=== PATIENT | female | born 1960 | race Caucasian/White ===

== ENCOUNTER 2018-08-30 00:17 | Outpatient (CLI) | payer BC, SELFPAY ==
--- NOTE | 2018-08-30 14:57 | DI.MAMMO_ITS ---
SYMPTOM/DIAGNOSIS: SCREENING, Z12.31 MAMMOGRAMS: Mammograms were interpreted according to the usual protocol including computer analysis with CAD system, tomosynthesis and C view imaging. Comparison is made with prior examinations. Breast density, C. There is an area of asymmetric breast tissue in the medial right breast seen on the craniocaudad view. Spot compression view and ultrasound are requested for further evaluation. No other suspicious masses or microcalcifications are seen. The skin and axilla are unremarkable. IMPRESSION: Additional views of the right breast as described above. Category 0. MQSA ASSESSMENT OF FINDINGS: Incomplete: Needs additional imaging evaluation. Category 0. Patient will receive a letter notifying them of these results. Bi-RADS category C. The breasts are heterogeneously dense, which may obscure small masses.
--- NOTE | 2018-08-30 15:21 | DI.RAD_ITS ---
SYMPTOMS/DIAGNOSIS: OSTEOPENIA, M85.80 DEXA SCAN: Routine examination. The lateral view of the spine shows no compression deformities. Evaluation of the left hip shows a total T score of -2.2 and a Z score of -1.4. This is consistent with osteopenia and an increased fracture risk. Evaluation of the lumbar spine shows a total T score of -1.9 and a Z score of - 0.7. This is consistent with osteopenia and an increased fracture risk. No evidence of osteoporosis is seen. IMPRESSION: Osteopenia in the left hip and lumbar spine.
== END 2018-08-30 00:37 ==
PROVIDERS: PCP Family Medicine; Visit Provider Family Medicine
DX: Z12.31 Encounter for screening mammogram for malignant neoplasm of breast (principal); R92.8 Other abnormal and inconclusive findings on diagnostic imaging of breast; M85.88 Other specified disorders of bone density and structure, other site
CPT/HCPCS: 77063; 77067; 77080

== ENCOUNTER 2018-09-07 00:33 | Outpatient (CLI) | payer BC, SELFPAY ==
--- NOTE | 2018-09-07 14:17 | DI.MAMMO_ITS ---
SYMPTOMS/DIAGNOSIS: F/U ABNORMAL MAMMO, ASYMMETRIC BREAST TISSUE ON CRANIOCAUDAD VIEW SPOT COMPRESSION VIEW WITH TOMOGRAPHY OF THE RIGHT BREAST: Additional images are interpreted according to the usual protocol including tomosynthesis and 2D imaging. CC spot compression view with tomography was performed for a questioned area of tissue asymmetry in the medial subareolar region of the right breast. No persistent abnormality or change is seen. The findings are consistent with overlapping structures. Breast density C. IMPRESSION: Category 1, negative mammogram. Yearly screening mammography is recommended. SA ASSESSMENT OF FINDINGS: Negative. Category 1. Patient will receive a letter notifying them of these results.
== END 2018-09-07 00:53 ==
PROVIDERS: PCP Family Medicine; Visit Provider Family Medicine
DX: Z12.31 Encounter for screening mammogram for malignant neoplasm of breast (principal); R92.8 Other abnormal and inconclusive findings on diagnostic imaging of breast; N64.59 Other signs and symptoms in breast
CPT/HCPCS: 77063; 77067

== ENCOUNTER 2018-12-06 11:13 | Day surgery (SDC) | payer BC, SELFPAY ==
[2018-12-06 11:27] VITALS: BP 127/79; PULSE 90; RESP 16; TEMP 37.1; O2SAT 94
[2018-12-06] MEDS: Lactated Ringers 1,000 ML 80 ML IV (11:53)
--- NOTE | 2018-12-06 12:02 | W.PM.HP.N ---
Date of service: 12/06/18 Time of Service: 12:02 Assessment and Plan (1) Osteopenia: Current visit: No Status: Acute (2) Depressive disorder: Current visit: No Status: Acute (3) Anxiety: Current visit: No Status: Acute (4) Stress incontinence: Current visit: Yes Status: Acute We will proceed with a mid urethral sling History of Present Illness Chief Complaint: Stress urinary incontinence Narrative: This is a 58-year-old woman who has a history of urinary incontinence. Most of her leakage occurs with activity. She had failed behavioral modification and pelvic floor physical therapy. She had also tried anticholinergics and beta 3 agonists. We did a urodynamic study which documented stress incontinence with no uninhibited bladder contractions. We discussed treatment options and she is agreeable to a mid urethral sling Review of Systems Review of Systems No fevers or chills No vision change or dysphasia No diabetes or thyroid No shortness of breath, cough or hemoptysis No chest pain or palpitations No nausea, vomiting, hepatitis, ulcers, jaundice, diarrhea or constipation No seizures, strokes or peripheral neuropathy No bleeding disorders or anemia No gout, occasional arthralgia PFSH Medical History Osteopenia (Acute) Anxiety (Chronic) Depression (Chronic) Surgical History section Colonoscopy - IV Sedation (06/22/12) Colonoscopy - MAC (03/13/17) Hysterectomy, Laproscopic (~2000) Ligation of fallopian tube Social History household members: spouse current occupational status: employed current occupation: NATURAL RESOURCE SPECIALIST pets and animals: Yes pets and animals: cat(s) frequency: 3-4 times per week duration: 15-30 minutes/day Smoking/Tobacco Use Status: Never alcohol intake: never substance use type: does not use artem/sikh: Spiritism special artem needs: No Meds Home Medications Medication Instructions Recorded Confirmed Type cholecalciferol (vitamin D3) 1,000 unit PO DAILY 01/30/13 12/06/18 History multivitamin [Daily Multiple 1 ea PO DAILY 01/30/13 12/06/18 History Vitamin] glucosam-chond mh-jzwxct-nt ac 2 ea PO DAILY 06/21/16 12/06/18 History citalopram 40 mg tablet 40 mg PO DAILY 08/13/18 12/06/18 History fluticasone 50 mcg/actuation nasal 2 spray KAILA BID PRN gm 08/13/18 12/06/18 History spray,suspension estradiol 2 mg tablet 2 mg PO DAILY #90 tab 09/26/18 12/06/18 Rx Allergies Allergy/AdvReac Type Severity Reaction Status Date / Time venlafaxine HCl Allergy Mild hives Verified 12/05/18 08:03 [From Effexor] codeine Allergy Verified 12/05/18 08:03 metoclopramide Allergy Verified 12/05/18 08:03 topiramate [From Topamax] Allergy Verified 12/05/18 08:03 Exam Narrative Exam Narrative: She is in no current distress. She is cooperative. She does not appear septic or toxic. Her vital signs are documented elsewhere in the chart. Her neck is supple with no mass Her lungs are clear with no rales or rhonchi Cardiac exam regular rate and rhythm Her abdomen is soft with no masses Her pelvic exam revealed no masses She is awake, alert and oriented. Results Last Vital Signs Temp 37.1 C 12/06/18 11:27 Pulse 90 12/06/18 11:27 Resp 16 12/06/18 11:27 BP 127/79 12/06/18 11:27 Pulse Ox 94 L 12/06/18 11:27
--- NOTE | 2018-12-06 12:08 | HPE_ITS ---
Date of service: 12/06/18 Time of Service: 12:02 Assessment and Plan (1) Osteopenia: Current visit: No Status: Acute (2) Depressive disorder: Current visit: No Status: Acute (3) Anxiety: Current visit: No Status: Acute (4) Stress incontinence: Current visit: Yes Status: Acute We will proceed with a mid urethral sling History of Present Illness Chief Complaint: Stress urinary incontinence Narrative: This is a 58-year-old woman who has a history of urinary incontinence. Most of her leakage occurs with activity. She had failed behavioral modification and pelvic floor physical therapy. She had also tried anticholinergics and beta 3 agonists. We did a urodynamic study which documented stress incontinence with no uninhibited bladder contractions. We discussed treatment options and she is agreeable to a mid urethral sling Review of Systems Review of Systems No fevers or chills No vision change or dysphasia No diabetes or thyroid No shortness of breath, cough or hemoptysis No chest pain or palpitations No nausea, vomiting, hepatitis, ulcers, jaundice, diarrhea or constipation No seizures, strokes or peripheral neuropathy No bleeding disorders or anemia No gout, occasional arthralgia PFSH Medical History Osteopenia (Acute) Anxiety (Chronic) Depression (Chronic) Surgical History section Colonoscopy - IV Sedation (06/22/12) Colonoscopy - MAC (03/13/17) Hysterectomy, Laproscopic (~2000) Ligation of fallopian tube Social History household members: spouse current occupational status: employed current occupation: WINDOWS ADMINISTRATOR pets and animals: Yes pets and animals: cat(s) frequency: 3-4 times per week duration: 15-30 minutes/day Smoking/Tobacco Use Status: Never alcohol intake: never substance use type: does not use artem/baptism: Islam special artem needs: No Meds Home Medications Medication Instructions Recorded Confirmed Type cholecalciferol (vitamin D3) 1,000 unit PO DAILY 01/30/13 12/06/18 History multivitamin [Daily Multiple 1 ea PO DAILY 01/30/13 12/06/18 History Vitamin] glucosam-chond yc-ksghzn-su ac 2 ea PO DAILY 06/21/16 12/06/18 History citalopram 40 mg tablet 40 mg PO DAILY 08/13/18 12/06/18 History fluticasone 50 mcg/actuation nasal 2 spray KAILA BID PRN gm 08/13/18 12/06/18 History spray,suspension estradiol 2 mg tablet 2 mg PO DAILY #90 tab 09/26/18 12/06/18 Rx Allergies Allergy/AdvReac Type Severity Reaction Status Date / Time venlafaxine HCl Allergy Mild hives Verified 12/05/18 08:03 [From Effexor] codeine Allergy Verified 12/05/18 08:03 metoclopramide Allergy Verified 12/05/18 08:03 topiramate [From Topamax] Allergy Verified 12/05/18 08:03 Exam Narrative Exam Narrative: She is in no current distress. She is cooperative. She does not appear septic or toxic. Her vital signs are documented elsewhere in the chart. Her neck is supple with no mass Her lungs are clear with no rales or rhonchi Cardiac exam regular rate and rhythm Her abdomen is soft with no masses Her pelvic exam revealed no masses She is awake, alert and oriented. Results Last Vital Signs Temp 37.1 C 12/06/18 11:27 Pulse 90 12/06/18 11:27 Resp 16 12/06/18 11:27 BP 127/79 12/06/18 11:27 Pulse Ox 94 L 12/06/18 11:27
[2018-12-06] MEDS: Lidocaine 1% Multi-Dose 50 ML VIAL (13:00)
[2018-12-06 13:29] VITALS: BP 91/52; PULSE 69; RESP 16; TEMP 36.3; O2SAT 99
[2018-12-06 13:34] VITALS: BP 87/53; PULSE 67; RESP 15; TEMP 36.3; O2SAT 99
--- NOTE | 2018-12-06 13:35 | W.PM.DSUDISC ---
Discharge Plan Disposition Patient Disposition: HOME Condition: Stable Discharge Details Reason For Visit: stress incontinence Attending Provider: Dustin Encinas Primary Care Provider: Aranza Evans Home Meds and New Rx's Prescriptions: New tramadol 50 mg tablet 50 mg PO Q6H PRN (Reason: pain) Qty: 10 RF: 0 No Action citalopram 40 mg tablet 40 mg PO DAILY RF: 0 fluticasone [Allergy Relief (fluticasone)] 50 mcg/actuation spray,suspension 2 spray KAILA BID PRNRF: 0 multivitamin [Daily Multi-Vitamin] 1 EACH tablet 1 ea PO DAILY RF: 0 cholecalciferol (vitamin D3) 1,000 UNIT capsule 1,000 unit PO DAILY RF: 0 glucosam-chond xg-chcyce-ll ac 1 EACH capsule 2 ea PO DAILY RF: 0 estradiol 2 mg tablet 2 mg PO DAILY Qty: 90 RF: 3 Discharge Instructions Additional Instructions: No lifting over 10 to 20 pounds for 1 to 2 weeks F/U with me 2 to 4 weeks Nothing per vagina until seen in followup Stand Alone Forms: DSU Post op Instructions, Laura Curran (DSU) Shower/Bathe:: 24 hours Diet:: As Tolerated Discharge Orders Discharge Orders: Discharge Order (Routine); Ordered 12/06/18 Ordered By: Dustin Encinas DS: Diagnosis Discharge Diagnosis (1) Osteopenia: Status: Acute (2) Depressive disorder: Status: Acute (3) Anxiety: Status: Acute (4) Stress incontinence: Status: Acute
[2018-12-06 13:39] VITALS: BP 92/51; PULSE 66; RESP 16; TEMP 36.3; O2SAT 99
--- NOTE | 2018-12-06 13:40 | PDOC.DSDIS_ITS ---
Discharge Plan Disposition Patient Disposition: HOME Condition: Stable Discharge Details Reason For Visit: stress incontinence Attending Provider: Dustin Encinas Primary Care Provider: Aranza Evans Home Meds and New Rx's Prescriptions: New tramadol 50 mg tablet 50 mg PO Q6H PRN (Reason: pain) Qty: 10 RF: 0 No Action citalopram 40 mg tablet 40 mg PO DAILY RF: 0 fluticasone [Allergy Relief (fluticasone)] 50 mcg/actuation spray,suspension 2 spray KAILA BID PRNRF: 0 multivitamin [Daily Multi-Vitamin] 1 EACH tablet 1 ea PO DAILY RF: 0 cholecalciferol (vitamin D3) 1,000 UNIT capsule 1,000 unit PO DAILY RF: 0 glucosam-chond le-ybnlgn-hp ac 1 EACH capsule 2 ea PO DAILY RF: 0 estradiol 2 mg tablet 2 mg PO DAILY Qty: 90 RF: 3 Discharge Instructions Additional Instructions: No lifting over 10 to 20 pounds for 1 to 2 weeks F/U with me 2 to 4 weeks Nothing per vagina until seen in followup Stand Alone Forms: DSU Post op Instructions, Laura Curran (DSU) Shower/Bathe:: 24 hours Diet:: As Tolerated Discharge Orders Discharge Orders: Discharge Order (Routine); Ordered 12/06/18 Ordered By: Dustin Encinas DS: Diagnosis Discharge Diagnosis (1) Osteopenia: Status: Acute (2) Depressive disorder: Status: Acute (3) Anxiety: Status: Acute (4) Stress incontinence: Status: Acute
[2018-12-06 13:54] VITALS: BP 94/64; PULSE 76; RESP 16; TEMP 36.4; O2SAT 99
[2018-12-06 14:30] VITALS: BP 108/76; PULSE 71; RESP 16; TEMP 36.2; O2SAT 97
--- NOTE | 2018-12-06 18:22 | ROE_ITS ---
DATE OF OPERATION: December 06, 2018 PREOPERATIVE DIAGNOSIS: Stress urinary incontinence. POSTOPERATIVE DIAGNOSIS: Stress urinary incontinence. PROCEDURE: Midurethral sling. SURGEON: Dustin Encinas M.D. ANESTHESIA: General. COMPLICATIONS: None. HISTORY: This is a 58-year-old woman who has a history of urinary incontinence. Her leakage tends t o occur when she laughs, coughs, or sneezes. She has failed behavioral modification and pelvic floor Physical Therapy. On urodynamics she had no uninhibited bladder contractions but did have leakage w ith activity. She presents now for a midurethral sling. OPERATIVE REPORT: The patient was brought to the Operating Room on 12/06/18. After successful induct ion of general anesthesia she was placed in the dorsal lithotomy position. Her genitalia was prepped and draped. A 16 [place] catheter was passed through the urethra into the bladder. The cathet er balloon was inflated with 10 cc of sterile water. A midurethral incision was made on the anterior vaginal wall. A plane was developed on each side of the incision up toward the obturator foramen. We used the Coloplast single incision mesh system to position a midurethral sling. We passed the needles along the plane of dissection until we reached the obturator foramen. We then passed the fasteners through the foramen and removed the needles. This was done on each side of the urethra. The sling was then tensioned by adjusting the attached suture. This was done with a Dickerson scissors pl aced between the urethra and the sling. The tensioning suture was then cut and the Dickerson scissors wer e removed. Cystoscopy was performed which showed no evidence of bladder perforation. The vaginal incision was t hen closed with a [id number] #2-0 Vicryl suture. The Apodaca catheter was ultimately removed. The patient tolerated this procedure well with no complications.
== END 2018-12-06 14:48 | disposition home or self-care (01) ==
PROVIDERS: PCP Family Medicine; Visit Provider Urology
PROC: (CPT 57288; principal; 2018-12-06 12:30)
DX: N39.3 Stress incontinence (female) (male) (principal)
CPT/HCPCS: 57288; NC; C1781; J0690; J1100; J1885; J2250; J2405

== ENCOUNTER 2019-07-05 03:53 | Outpatient (CLI) | payer BC, SELFPAY ==
[2019-07-05 09:04] LABS: HCT 40.4 % (36.0-46.0); HGB 13.5 g/dL (12.0-15.5); Mean Corp. HGB Concentration 33.4 g/dL (32.0-36.0); Mean Corpuscular Volume 89.8 fL (80-95); Mean Platelet Volume 10.7 fL (8.0-11.0); Platelet Count 316 x1000/uL (130-400); RBC Distribution Width 13.5 % (11.7-14.6); White Blood Cell Count 6.21 k/cumm (4.4-10.8)
[2019-07-05 10:15] LABS: ALT 21 U/L (12-78); AST 17 U/L (15-37); Albumin 3.5 g/dL (3.4-5.0); Alkaline Phosphatase 74 U/L (46-116); BUN 11 mg/dL (7-18); Bilirubin, Total 0.4 mg/dL (0.2-1.0); CREATININE 0.74 mg/dL (0.55-1.02); Calcium 9.2 mg/dL (8.5-10.1); Chloride 105 mmol/L (98-107); Glucose 86 mg/dL (70-100); Potassium 4.2 mmol/L (3.5-5.1); Sodium 140 mmol/L (136-145); TSH (W/Ref FT4) 2.35 uIU/mL (0.36-3.74); Total Protein 6.8 g/dL (6.4-8.2); Vitamin B12 654 pg/mL (193-986)
[2019-07-08 08:11] LABS: Vitamin D 25 Total 78.6 ng/ml (30-100)
== END 2019-07-05 04:13 ==
PROVIDERS: PCP Family Medicine; Visit Provider Family Medicine
DX: R53.83 Other fatigue (principal)
CPT/HCPCS: 36415; 80053; 82306; 85027; 82607; 84443

== ENCOUNTER 2019-09-16 00:40 | Outpatient (CLI) | payer BC, SELFPAY ==
--- NOTE | 2019-09-16 09:14 | DI.MAMMO_ITS ---
EXAM: MG MAMMO SCREENING CLINICAL HISTORY: screening Z12.39 TECHNIQUE: Mammograms were interpreted according to the usual protocol including computer analysis w [place] CAD system, tomosynthesis and C-view imaging. COMPARISON: [id number] FINDINGS: The breasts are composed of heterogeneously dense tissue, which may obscure small masses, breast dens ity category C. There are no suspicious masses or suspicious microcalcifications. There has been no significant chagne when compared with prior images. IMPRESSION: Category 1, negative mammogram. Routine yearly screening is recommended. BI-RADS Cat 1 - Negative Breast Density - Category C - Heterogeneously dense
== END 2019-09-16 01:00 ==
PROVIDERS: PCP Family Medicine; Visit Provider Family Medicine
DX: Z12.31 Encounter for screening mammogram for malignant neoplasm of breast (principal)
CPT/HCPCS: 77063; 77067

== ENCOUNTER 2020-09-17 02:19 | Outpatient (CLI) | payer BC, SELFPAY ==
--- NOTE | 2020-09-17 08:15 | DI.US_ITS ---
APPROVED REPORT EXAM: Comprehensive 2D, Doppler, and color-flow Echocardiogram Patient [facility] Receptionist: Sherri Slater RDCS (AE) Indications: Abnormal EKG, Pre op Other Information Study Quality: Good Conclusion Left Ventricle : The left ventricle is normal size. The left ventricular systolic function is normal. The left ventricular ejection fraction is within the normal range. There is normal left ventricular wall thickness. There is normal LV segmental wall motion. The left ventricular diastolic function is normal. LVEF is 55-60%. Right Ventricle : The right ventricle is normal size. The right ventricular systolic function is norm al. The RVSP is 21.0 mmHg. Atria : The left atrium size is normal. Prominent Eustachian valve is noted in the right atrium. Tricuspid Valve : The tricuspid valve is normal in structure. There is no tricuspid valve stenosis. M ild to moderate tricuspid regurgitation. Great Vessels : The aortic root is normal in size. The ascending aorta is mildly dilated (3.6cm). Aor tic arch is normal in caliber. IVC is normal in size and collapses >50% with inspiration. Please see remainder of study for further details. Wall motion Left Ventricle The left ventricle is normal size. The left ventricular systolic function is normal. The left ventric ular ejection fraction is within the normal range. There is normal left ventricular wall thickness. T here is normal LV segmental wall motion. The left ventricular diastolic function is normal. There is no ventricular septal defect visualized. LVEF is 55-60%. Right Ventricle The right ventricle is normal size. The right ventricular systolic function is normal. The RVSP is 21 .0 mmHg. Atria The left atrium size is normal. Prominent Eustachian valve is noted in the right atrium. The interatr ial septum is intact with no evidence for an atrial septal defect. Aortic Valve The aortic valve is normal in structure. Aortic valve is trileaflet. There is no aortic valvular sten osis. No aortic regurgitation is present. Mitral Valve The mitral valve is normal in structure. No evidence of mitral valve stenosis. Trace mitral regurgita tion. Tricuspid Valve The tricuspid valve is normal in structure. There is no tricuspid valve stenosis. Mild to moderate tr icuspid regurgitation. Pulmonic Valve Pulmonic valve is not well visualized. There is no pulmonic valvular stenosis. There is no pulmonic v alvular regurgitation. Great Vessels The aortic root is normal in size. The ascending aorta is mildly dilated (3.6cm). Aortic arch is norm al in caliber. IVC is normal in size and collapses >50% with inspiration. Pericardium Trivial pericardial effusion. 2D Dimensions IVSD d PLAX 0.89 cm F: 0.6-1.0 LV Vol A2C d MOD 77.7 mL LVPW d PLAX 0.87 cm F: 0.6 - 1.0 LV Vol A4C d MOD 76.8 mL LVID d PLAX 4.23 cm F: 3.8 - 5.2 LA vol/ BSA A4C s A-L 22.3 mL/m2 LVDs 2.90 cm F: 2.2 - 3.5 LA Area A4C s MOD 13.62 cm2 Ao Root d 2.70 cm F: 2.7 - 3.3 LV EF A4C MOD 59.0 % RA Area A4C 9.69 cm2 LV EF A2C MOD 55.7 % RA Vol/ BSA A4C s A-L 13.7 mL/m2 LV EF Biplane MOD 57.9 % Ao Asc Diam d 3.60 cm F: 2.3 - 3.1 SV 48.39 mL LV EF Teichholz 58.6 % SV Index 32.21 mL/m2 LVEF (Damico's) 57.90 % F: 54 - 74 LV Volume 69.60 mL F: 46 - 106 LV Volume Index 46.40 mL/m2 F: 29 - 61 LV Vol Biplane MOD 83.6 mL FS 30.65 % M-Mode TAPSE 2.09 cm (M/F) >1.7 LV Diastology MV E' medial 0.060 (>0.07 m/s) E/A Ratio 0.8 LV E/e MED 8.70 (<14) MV E Vmax 0.52 (0.4-1.3 m/s) MV E' lateral 0.065 (>0.1 m/s) MV A Vmax 0.65 (0.4-1.3 m/s) LV E/e LAT 8.00 (<14) MV E/A Ratio 0.74 MV E/E' medial 8.71 MV E/E' lateral 8.05 Aortic Valve LVOT Vmax 0.86 m/s LVOT Mean [place]oto. 0.59 m/s LVOT Peak Grad 3.0 mmHg LVOT Mean Grad 1.6 mmHg LVOT VTI 0.169 m LVOT Diam s 1.95 cm AoV Vmax 1.03 m/s Velocity Ratio 0.83 AoV Mean [place]. 0.79 m/s AoV Peak Grad 4.3 mmHg AoV Mean Grad 2.7 mmHg AoV VTI 0.209 m Mitral Valve MV DT 244 (160-240 msec) MV PHT 71 msec MV Area PHT 3.10 cm2 Pulmonary Valve PV Vmax 0.66 (0.5-1.5 m/s) RVOT Peak Gr. 1.13 mmHg PV Peak Grad 1.7 mmHg RVOT Mean Gr. 0.60 mmHg PV Mean Grad 1.0 mmHg RVOT VTI 0.111 m PV VTI 0.145 m RVOT Vmax 0.53 m/s Tricuspid Valve TR Peak Grad 18.0 mmHg TR Vmax 2.12 m/s RA Pressure 3.00 mmHg RVSP (TR) 21.0 mmHg
--- NOTE | 2020-09-17 08:25 | DI.MAMMO_ITS ---
EXAM: MAMMO SCREENING CLINICAL HISTORY: screening,Z12.39 TECHNIQUE: Mammograms were interpreted according to the usual protocol including computer analysis w [employer] CAD system, tomosynthesis and C-view imaging. COMPARISON: 2010 through 2018 FINDINGS: The breasts are composed of heterogeneously dense fibroglandular densities, Breast Density category C . No suspicious masses or suspicious microcalcifications are seen. No skin thickening or abnormal axillary lymph nodes are seen. There has been no significant change from prior exams. IMPRESSION: BI-RADS Category 1, Negative mammogram. Yearly screening mammography is recommended. Breast Density Category C, heterogeneously Dense. The mammogram demonstrates the patient's breast tissue is dense. Dense breast tissue is very common a nd is not abnormal but dense breast tissue can make it harder to find cancer on a mammogram. Also, de nse breast tissue may increase breast cancer risk. This information about the result of the mammogram report was provided to the patient to raise their awareness. Use this report when you speak with the patient about their risks for breast cancer, which includes their family history. At that time, you may recommend additional screening tests (Ultrasound or MRI) as they might be useful based on their r isk. A negative radiographic report should not delay biopsy if a dominant or clinically suspicious mass is present. Up to ten percent of cancers are not identified on mammography. A negative report may reinforce clinical impression. Adenosis and dense breasts may obscure an underlying neoplasm. False positive reports average 6 to 10%.
== END 2020-09-17 02:39 ==
PROVIDERS: PCP Family Medicine; Visit Provider Family Medicine
DX: Z12.39 Encounter for other screening for malignant neoplasm of breast (principal); R92.2 Inconclusive mammogram; R94.31 Abnormal electrocardiogram [ECG] [EKG]; I07.1 Rheumatic tricuspid insufficiency
CPT/HCPCS: 77063; 77067; 93306

== ENCOUNTER 2021-05-24 13:16 | Outpatient (CLI) | payer BC, SELFPAY ==
--- NOTE | 2021-05-24 13:00 | DI.RAD_ITS ---
Exam(s) XR HIP RT COMPLETE AP PELVIS EXAM: XR HIP RT COMPLETE AP PELVIS CLINICAL HISTORY: right hip pain. TECHNIQUE: 2D digital imaging was performed. COMPARISON: No exams were available for comparison FINDINGS: No evidence of pelvic nor hip fracture. Both hips appear unremarkable. Additional lateral view of t he right hip is unremarkable. Visualized sacroiliac joints appear unremarkable. No osseous lesions seen. Bone density is normal. IMPRESSION: DATA REPOSITORY: RADIATION DOSE DELIVERED:
== END 2021-05-24 13:17 | disposition home or self-care (01) ==
LOC: DIORS 13:16
PROVIDERS: PCP Family Medicine; Referring Provider Family Medicine; Visit Provider Student in an Organized Health Care Education/Training Program
DX: M25.551 Pain in right hip (principal)
CPT/HCPCS: 73502

== ENCOUNTER 2021-09-23 01:09 | Outpatient (CLI) | payer BC, SELFPAY ==
--- NOTE | 2021-09-23 08:49 | DI.MAMMO_ITS ---
Exam(s) MAMMO SCREENING EXAM: MAMMO SCREENING CLINICAL HISTORY: screening,Z12.39. TECHNIQUE: Bilateral full field digital CC and MLO mammographic images were obtained with 3D tomosyn thesis and utilizing computer aided detection (CAD). COMPARISON: Prior mammograms dating back to 2011, the most recent being . FINDINGS: There are no new spiculated masses nor malignant appearing microcalcification groups. There is no significant architectural distortion nor skin thickening-retraction. IMPRESSION: No radiographic evidence of malignancy. BI-RADS Category 1 - Negative Breast Density - Category C - Heterogeneously dense Breast density Category C or D implies that the patient has dense breast tissue. Dense breast tissue can make it harder to find cancer on a mammogram. Dense breast tissue is also associated with an incr eased risk of breast cancer. This information about the result of the mammogram report was provided to the patient to raise their awareness. Use this report when you speak with the patient about their risks for breast cancer, which includes their family history. At that time, you may recommend additional screening tests (Ultrasoun d or MRI) as these tests may add significant information. A negative radiographic report should not delay biopsy if a dominant or clinically suspicious mass is present. Up to ten percent of cancers are not identified on mammography. A negative report may reinforce clinical impression. Adenosis and dense breasts may obscure an underlying neoplasm. False positive reports average 6 to 10%. Patient will receive a letter notifying them of these results.
== END 2021-09-23 01:29 ==
PROVIDERS: PCP Family Medicine; Visit Provider Family Medicine
DX: Z12.31 Encounter for screening mammogram for malignant neoplasm of breast (principal); R92.8 Other abnormal and inconclusive findings on diagnostic imaging of breast
CPT/HCPCS: 77063; 77067

== ENCOUNTER 2022-05-18 06:20 | Day surgery (SDC) | payer BC, SELFPAY ==
[2022-05-18 06:44] VITALS: BP 115/71; PULSE 79; RESP 16; TEMP 36.4; O2SAT 96
--- NOTE | 2022-05-18 06:51 | W.ANESPRE ---
General Info Date of Service Date Performed: 05/18/22 Height: 5 ft Weight: 66.3 kg Body Mass Index (BMI): 28.5 Surgical Procedure: Operation Date: 05/18/22 07:40 Proposed Procedure Side Surgeon p Wrist ECTR Right Cj Lassietr MD Meds Allergies and Home Medications Allergies Allergy/AdvReac Type Severity Reaction Status Date / Time venlafaxine HCl Allergy Mild hives Verified 05/18/22 06:52 [From Effexor] metoclopramide Allergy Verified 05/18/22 06:52 topiramate [From Topamax] Allergy pt thinks Verified 05/18/22 07:04 itching codeine AdvReac Nausea Verified 05/18/22 07:04 Home Medication Medication Instructions Recorded cholecalciferol (vitamin D3) 25 1,000 unit PO DAILY 01/30/13 mcg (1,000 unit) capsule multivitamin (Daily Multi-Vitamin 1 ea PO DAILY 01/30/13 tablet) [id number]-ghzqyndqyd-dbzblcfj-hyalur 2 ea PO DAILY 06/21/16 ac 375 mg-300 mg-175 mg-2 mg cap biotin 1 mg tablet 1 mg PO DAILY 08/15/19 triamcinolone acetonide 0.1 % 1 applic topical BID PRN rash #30 04/28/21 topical cream grams cetirizine 10 mg tablet (Zyrtec) 10 mg PO DAILY PRN 09/02/21 citalopram 20 mg tablet 10 mg PO DAILY #90 tabs 03/07/22 bupropion HCl 300 mg 24 hr tablet, 300 mg PO QAM #90 tabs 04/06/22 extended release estradiol 1 mg tablet 1 mg PO DAILY #90 tabs 05/03/22 acetaminophen 500 mg tablet 500 mg PO Q6H PRN pain #60 tabs 05/18/22 hydrocodone 5 mg-acetaminophen 325 1 tab PO Q6H PRN severe pain #6 05/18/22 mg tablet tabs Current Visit Medications: Current Medications Generic Name Dose Route Start Last Admin Trade Name Freq PRN Reason Stop Dose Admin Ringer's Solution 1,000 mls @ 80 mls/hr 05/18/22 06:00 IV 06/16/22 23:59 INFUSION DIVYA Cefazolin Sodium/Dextrose 2 gm in 50 mls @ 100 mls/hr 05/18/22 06:00 Ancef Duplex IVPB 05/18/22 16:00 PREOP DIVYA IV Miscellaneous Supplies 1 each 05/18/22 06:00 Iv Access IV 06/16/22 23:59 DIRECTED DIVYA Sodium Chloride 0 ml 05/18/22 06:00 Normal Saline Flush 10 Ml Syr IV 06/16/22 23:59 PRN PRN Sodium Chloride 0 ml 05/18/22 06:00 Normal Saline 10 Ml Vial IJ 06/16/22 23:59 DIRECTED PRN Sterile Water 0 ml 05/18/22 06:00 Water,Injection,Sterile 10 Ml Vial IJ 06/16/22 23:59 DIRECTED PRN PFSH Active Problems Active Problems: Problem Status Onset Code Anxiety 10/26/17 F41.9 Depressive disorder F32.9 Osteopenia 10/26/08 M85.80 Stress incontinence N39.3 Urticaria L50.9 Irritable colon 01/12/09 K58.9 Annual physical exam Z00.00 Lateral epicondylitis M77.10 Cataract H26.9 Abnormal EKG R94.31 Tricuspid regurgitation I07.1 Piriformis syndrome of right side G57.01 Median nerve compression G56.00 Bilateral carpal tunnel syndrome G56.03 Medical History Medical History Abnormal mammography Annual physical exam (05/25/15) Anxiety Brief depressive adjustment reaction 10/26/08 of Mother Brief depressive adjustment reaction (10/26/08) Depression Hives (~02/11/19) Irritable colon 01/12/09 Mammogram abnormal left breast 2006 Menopausal symptom Menopausal symptom Osteopenia Postoperative nausea Urinary incontinence (05/25/15) Urticaria chronic tanning foster Medical History Comments:: hx postop nausea Surgical History Surgical History section X2 Colonoscopy - IV Sedation (06/22/12) DR. AMERICA BILL; NORMAL Colonoscopy - MAC (03/13/17) H/O section x2 History of bilateral ligation of fallopian tubes History of bilateral tubal ligation History of section History of suburethral sling procedure Midurethral sling; MD Encinas, 12/06/2018 Hx of bilateral cataract extraction Hysterectomy, Laproscopic (~2000) fibroids; ovaries removed Ligation of fallopian tube S/P laparoscopic hysterectomy 11/27/00 fibroids; both ovaries removed Status post laparoscopic hysterectomy Tobacco Smoking/Tobacco Use Status: Never Passive smoking exposure: Yes Second hand exposure: Yes Alcohol Alcohol Intake: never Substance Use Substance use: Never Vital Signs and Lab Results Vital Signs Most Recent Vital Signs in EMR: Most Recent Vital Signs Temp Pulse Resp BP Pulse Ox 36.4 C L 79 16 115/71 96 05/18/22 06:44 05/18/22 06:44 05/18/22 06:44 05/18/22 06:44 05/18/22 06:44 Lab Results Blood Type / Crossmatch: No Data to Display Complete Blood Count: No Data to Display Complete Metabolic Panel: No Data to Display Liver Function Panel: No Data to Display Coagulation Panel: No Data to Display Cardiac Panel: No Data to Display Arterial Blood Gas: No Data to Display Venous Blood Gas: No Data to Display Pancreas Panel: No Data to Display Thyroid Panel: No Data to Display Infectious Disease: No Data to Display Blood Cultures: No Data to Display Toxicology Panel: No Data to Display Imaging and Studies Imaging and Studies Study information below may be from another EMR and interpreted by another provider. Please see original notes in EMR for more complete details. EKG Summary: Conclusion Sinus rhythm...normal P axis, V-rate 60- 99 Inferior infarct, old...Q >35mS, II III aVF Echocardiogram Summary: Conclusion Left Ventricle : The left ventricle is normal size. The left ventricular systolic function is normal. The left ventricular ejection fraction is within the normal range. There is normal left ventricular wall thickness. There is normal LV segmental wall motion. The left ventricular diastolic function is normal. LVEF is 55-60%. Right Ventricle : The right ventricle is normal size. The right ventricular systolic function is normal. The RVSP is 21.0 mmHg. Atria : The left atrium size is normal. Prominent Eustachian valve is noted in the right atrium. Tricuspid Valve : The tricuspid valve is normal in structure. There is no tricuspid valve stenosis. Mild to moderate tricuspid regurgitation. Great Vessels : The aortic root is normal in size. The ascending aorta is mildly dilated (3.6cm). Aortic arch is normal in caliber. IVC is normal in size and collapses >50% with inspiration. Please see remainder of study for further details. Anesthesia Assessment and Plan Anesthesia History Personal History: PONV Family History: No Family History of Anesthesia Complications Exercise Tolerance Exercise Tolerance: Metabolic Equivalents>4 Pertinent Negatives Pertinent Negatives: No Symptoms of GERD, No Major Cardiovascular Symptoms or Complaints, No Major Pulmonary Symptoms or Complaints and No History of CVA/TIA Cardiac & Pulmonary Exam Cardiac Exam: Normal S1/S2 Heart Sounds Pulmonary Exam: Clear Bilateral Breath Sounds Implantable Cardiac Device Does patient have a Pacemaker or an ICD?: No Airway Exam Known Difficult Airway: No Mallampati Class: 2 Mouth Opening: Normal (> 3cm) Thyromental Distance: Greater than 3 cm Neck Range of Motion: Full ROM Neck Circumference: Normal Teeth Condition: Normal Dentition ASA Classification ASA Score: ASA 2 Emergency Case?: No NPO Status NPO Status: NPO Clears >2 hours, Solids >8 hours Anesthesia Plan Resuscitation Status: Full Code Anesthesia Technique: General Anesthesia Airway Planned: Natural Airway Monitors Used: Standard Monitors
[2022-05-18] MEDS: Lactated Ringers 1,000 ML 80 ML IV (07:03)
--- NOTE | 2022-05-18 07:12 | W.PM.DSUDISC ---
Discharge Plan Disposition Patient Disposition: HOME Condition: Good Discharge Details Reason For Visit: Right carpal tunnel syndrome Attending Provider: Cj Lassiter Primary Care Provider: Aranza Evans Home Meds and New Rx's Prescriptions: New acetaminophen 500 mg tablet 500 mg PO Q6H PRN (Reason: pain) Qty: 60 2RF hydrocodone-acetaminophen 5-325 mg tablet 1 tab PO Q6H PRN (Reason: severe pain) Qty: 4 0RF Rx Instructions: Take one tablet up to every 6 hours as needed for severe postoperative pain Continued biotin 1 mg tablet 1 mg PO DAILY cetirizine [Zyrtec] 10 mg tablet 10 mg PO DAILY PRN triamcinolone acetonide 0.1 % cream 1 applic topical BID PRN (Reason: rash) Qty: 30 0RF Rx Instructions: apply to affected area 2x daily as needed citalopram 20 mg tablet 10 mg PO DAILY Qty: 90 4RF multivitamin [Daily Multi-Vitamin] 1 EACH tablet 1 ea PO DAILY cholecalciferol (vitamin D3) 1,000 UNIT capsule 1,000 unit PO DAILY glucosam-chond oe-xtspre-br ac 1 EACH capsule 2 ea PO DAILY Rx Instructions: 750mg/600mg bupropion HCl 300 mg tablet extended release 24 hr 300 mg PO QAM Qty: 90 4RF estradiol 1 mg tablet 1 mg PO DAILY Qty: 90 3RF Discharge Instructions Stand Alone Forms: Sravani Larson Tunnel Release Remove Dressings/Wound Care:: 72 hours Shower/Bathe:: 72 hours Diet:: As Tolerated Discharge Orders Discharge Orders: Discharge Order (Routine); Ordered 05/18/22 Ordered By: Shanna Bowen DS: Diagnosis Discharge Diagnosis (1) Bilateral carpal tunnel syndrome: Status: Acute
[2022-05-18 07:15] VITALS: BMI 28.5
--- NOTE | 2022-05-18 07:19 | W.PREOPHP ---
Assessment and Plan Assessment and plan (1) Bilateral carpal tunnel syndrome: Status: Acute Assessment and plan: Ilda has bilateral carpal tunnel syndrome. Please see the previous office note for complete clinical history about the carpal tunnel syndrome. She has exhausted nonoperative treatment options and is here today for carpal tunnel release, starting at the right side and then proceeding with the left side in a week or 2. I discussed the risk of carpal tunnel release with Ilda. I reviewed the risk of the procedure to include bleeding, infection, pain, stiffness, swelling, injury to nerves, incomplete release, persistent numbness. Despite these risk, she elects to proceed with the right side today followed by the left side. History of Present Illness History of Present Illness Chief Complaint: Bilateral Carpal Tunnel Syndrome Narrative: Ilda is a 61-year-old female who I saw previously in the office for diagnosis of bilateral carpal tunnel syndrome. Please see that office note for complete detailed history. She feels that she has exhausted her nonoperative options and is here today for carpal tunnel release. He does have carpal tunnel on both sides but we will proceed with the right side today. She denies any changes to her health. No sick contacts. No chest pain or shortness of breath. Review of Systems All systems reviewed & are unremarkable except as noted in HPI and below PFSH All Active Problems Anxiety (Chronic 10/26/17) Depressive disorder (Chronic) Osteopenia (Chronic 10/26/08) Stress incontinence (Chronic) Urticaria (Acute) Irritable colon (Acute 01/12/09) Annual physical exam (Acute) Lateral epicondylitis (Acute) Cataract (Chronic) Abnormal EKG (Acute) Tricuspid regurgitation (Acute) Piriformis syndrome of right side (Acute) Median nerve compression (Acute) Bilateral carpal tunnel syndrome (Acute) Medical History Abnormal mammography Annual physical exam (05/25/15) Anxiety Brief depressive adjustment reaction 10/26/08 of Mother Brief depressive adjustment reaction (10/26/08) Depression Hives (~02/11/19) Irritable colon 01/12/09 Mammogram abnormal left breast 2007 Menopausal symptom Menopausal symptom Osteopenia Postoperative nausea Urinary incontinence (05/25/15) Urticaria chronic tanning foster Surgical History section X2 Colonoscopy - IV Sedation (06/22/12) DR. AMERICA BILL; NORMAL Colonoscopy - MAC (03/13/17) H/O section x2 History of bilateral ligation of fallopian tubes History of bilateral tubal ligation History of section History of suburethral sling procedure Midurethral sling; MD Encinas, 12/06/2018 Hx of bilateral cataract extraction Hysterectomy, Laproscopic (~2000) fibroids; ovaries removed Ligation of fallopian tube S/P laparoscopic hysterectomy 11/27/00 fibroids; both ovaries removed Status post laparoscopic hysterectomy Family History Mother , age 85 Parathyroid abnormality Diabetes Essential hypertension Depression Heart disease Bladder cancer Father , age 67 Alcohol abuse Essential hypertension Heart disease Stroke Lung cancer SMOKER Sister Essential hypertension Depression Maternal Grandfather , age 66 Heart disease Paternal Grandfather Alcohol abuse Maternal Grandmother , age 89 Heart disease Diabetes Paternal Grandmother , age 67 Diabetes Heart disease Brother Alcohol abuse CP (cerebral palsy) Asthma Brother , MVA at age 24. No problems noted. Brother , age 59 Alcohol abuse Asthma Daughter No problems noted. Daughter No problems noted. Social History Smoking/Tobacco Use Status: Never Second Hand Exposure: Yes Smoking risk assessment performed?: Yes Alcohol Intake: never Drug use: Never Household members: significant other Housing: house Communication Needs: None Do you need help understanding health information?: Never current occupation: [employer] Pets and animals: No Sexually active: Yes Do you think of yourself as: straight/heterosexual Current gender identity: female What is your relationship status?: How often do you talk on the phone with friends or family?: three or more times per week How often do you get together with friends or relatives?: twice per week How often do you attend jew or mandaeism services?: 4 or more times per year Do you belong to any clubs or organized social groups?: yes Panel score (0-1 are the most socially isolated patients): 4 Duration: < 15 minutes/day Karina/Yarsanism: Yazidism Special karina needs: No Seatbelt use: always Helmet use: Yes Helmet use: always Drive intox or ride w/intox farm truck driver: No Do you feel safe at home: Yes Do you feel safe in your relationship?: Yes Meds Allergies and Home Medications Allergies Allergy/AdvReac Type Severity Reaction Status Date / Time venlafaxine HCl Allergy Mild hives Verified 05/18/22 06:52 [From Effexor] metoclopramide Allergy Verified 05/18/22 06:52 topiramate [From Topamax] Allergy pt thinks Verified 05/18/22 07:04 itching codeine AdvReac Nausea Verified 05/18/22 07:04 Home Medications Medication Instructions Recorded Confirmed Type cholecalciferol (vitamin D3) 25 1,000 unit PO DAILY 01/30/13 05/18/22 History mcg (1,000 unit) capsule multivitamin (Daily Multi-Vitamin 1 ea PO DAILY 01/30/13 05/18/22 History tablet) hlaxztxjqx-xnfqojvwnw-stdzwvnz-hyalur 2 ea PO DAILY 06/21/16 05/18/22 History ac 375 mg-300 mg-175 mg-2 mg cap biotin 1 mg tablet 1 mg PO DAILY 08/15/19 05/18/22 History triamcinolone acetonide 0.1 % 1 applic topical BID PRN rash #30 04/28/21 05/18/22 Rx topical cream grams cetirizine 10 mg tablet (Zyrtec) 10 mg PO DAILY PRN 09/02/21 05/18/22 History citalopram 20 mg tablet 10 mg PO DAILY #90 tabs 03/07/22 05/18/22 Rx bupropion HCl 300 mg 24 hr tablet, 300 mg PO QAM #90 tabs 04/06/22 05/18/22 Rx extended release estradiol 1 mg tablet 1 mg PO DAILY #90 tabs 05/03/22 05/18/22 Rx acetaminophen 500 mg tablet 500 mg PO Q6H PRN pain #60 tabs 05/18/22 Rx hydrocodone 5 mg-acetaminophen 325 1 tab PO Q6H PRN severe pain #4 05/18/22 Rx mg tablet tabs Exam Resp Auscultation: clear to auscultation bilaterally Cardio Rate: regular rate Rhythm: regular rhythm
[2022-05-18] MEDS: ceFAZolin 2 GM/50 ML BAG IVPB (07:26)
[2022-05-18] MEDS: Lidocaine 1% Multi-Dose W/EPI 1/100,000 50 ML VIAL (07:29)
[2022-05-18] MEDS: Sodium Bicarbonate 50 MEQ/50 ML VIAL (07:29)
[2022-05-18 07:42] VITALS: BP 106/63; PULSE 72; RESP 16; TEMP 36.5; O2SAT 95
--- NOTE | 2022-05-18 07:50 | W.ANESPOSTOP ---
Postoperative Evaluation Date, Time and Location Date Performed: 05/18/22 Time Performed: 07:42 Patient Location: Day Surgery Unit Vital Signs Most Recent Imported Vital Signs: Most Recent Vital Signs Temp Pulse Resp BP Pulse Ox 36.5 C 72 16 106/63 95 05/18/22 07:42 05/18/22 07:42 05/18/22 07:42 05/18/22 07:42 05/18/22 07:42 Pain Score Most Recent Pain Score: Most Recent Pain Score Pain Level 0 05/18/22 07:42 Assessment Mental Status: Awake (Alert & Oriented to Patient Baseline) Airway and Respiratory Function: Patent airway with normal (patient baseline) respiratory exam Cardiovascular Function: Hemodynamically Stable Hydration Status: Adequately Hydrated Nausea & Vomiting: No Nausea or Vomiting Pain: Pt. Denies Any Pain Peripheral Nerve Block: Other (Local anesthesia in place from Dr. Lassiter)
[2022-05-18 08:15] VITALS: BP 115/63; PULSE 68; RESP 16; TEMP 36.3; O2SAT 97
--- NOTE | 2022-05-18 10:40 | W.PM.OP ---
Date of service: 05/18/22 Time of Service: 07:40 Operative Note Operative Note DATE OF PROCEDURE: 05/18/22 PRE-OP DIAGNOSIS: Right Carpal Tunnel Syndrome POST-OP DIAGNOSIS: same PROCEDURE: Right Endoscopic Carpal Tunnel Release SURGEON: Cj Lassiter ANESTHESIA TYPE: General:No Airway Refer to Anesthesia Record ESTIMATED BLOOD LOSS: 0 PATHOLOGY: none sent TOURNIQUET TIME: 3 COMPLICATIONS: None Patient was transported to: same day Patient's condition: stable Indications: I have seen Ilda in clinic for symptoms of carpal tunnel syndrome. The numbness, tingling, and pain limited function. Clinical exam findings with nerve conduction tests confirmed the diagnosis of carpal tunnel syndrome. Nonoperative measures such as bracing, time, activity modifications had been tried but disability and pain persisted. I discussed carpal tunnel release with the patient. I reviewed the risks of the procedure to include, but not limited to, bleeding, infection, pain, stiffness, incomplete release, damage to nerves or vessels, persistent numbness, recurrence. Despite these risks, the patient elected to proceed. Findings: There was tightened carpal tunnel. This was dilated and released successfully with the endoscopic with increased space within the tunnel. The antebrachial fascia was released proximally freeing the median nerve at the wrist. Procedure Description: Ilda was greeted in the preoperative holding area where the correct side was identified and marked. The consent was reviewed with the patient and signed. The history and physical was updated. All questions were answered. She was taken back to the operating room. The patient was placed into the supine position on the operating room table with the right arm on an arm board. A nonsterile tourniquet was placed high onto the arm. All bony prominences were well padded. Prophylactic antibiotics in the form of Cefazolin were administered. The right arm was then prepped with Chloraprep and draped in a standard fashion with stockinette and extremity drape. A timeout to confirm correct identity, side and site, procedure, allergies, anesthesia, and medical concerns was performed. The surgical site was marked in the volar wrist creases in line with the radial border of the fourth ray. This area was anesthetized with approximately 6cc of 1% Lidocaine. The limb was then exsanguinated with an Esmarch. The skin was incised with a 15 blade, approximately 1cm. The skin only was cut and the deeper tissue was dissected bluntly with a tenotomy scissor, avoiding passing nerve and venous structures. The fascia was penetrated and opened bluntly. A two-prong skin hook was placed under this proximal fascial edge. A series of hamate finders were used to identify and dilate the carpal tunnel. Synovial elevator was used to free synovial attachments to the underside of the transverse carpal ligament. My thumb was kept in the palm to junie the distal extent of the carpal tunnel and correctly position the hand. The [employer] endoscope was inserted without difficulty and without resistance. Excellent visualization showed horizontally running fibers of the transverse carpal ligament (TCL). The distal extent of the TCL was visualized and the end of the scope palpated with the thumb. The blade was elevated and withdrawn from distal to proximal. The TCL was split into two flaps. The endoscope was reinserted to confirm complete release and any remnant ligament was incised. The scope was withdrawn and the proximal aspect of the carpal tunnel was grossly inspected and appeared release with the median nerve visible. The antebrachial fascia at the level of the wrist was then freed from the overlying skin and then the underlying median nerve with blunt dissection. This was transected longitudinally for about 3cm proximal to the wrist incision. The wound was then irrigated with easy flow of irrigant distally and proximally. The incision was closed with a single 4-0 Nylon suture. The wound was dressed with Xeroform, Gauze, Kerlix and Hood. The tourniquet was deflated with the initial dressing and held with some pressure. Blood flow returned easily to all digits with capillary refill less than 2 seconds. The patient tolerated the procedure well and was returned to the Same Day Surgery area in a stable condition suffering no known complication.
== END 2022-05-18 08:24 | disposition home or self-care (01) ==
PROVIDERS: PCP Family Medicine; Visit Provider Student in an Organized Health Care Education/Training Program
PROC: 01N54ZZ Release Median Nerve, Percutaneous Endoscopic Approach (ICD-10-PCS; CPT 29848; principal; 2022-05-18 07:30)
DX: G56.03 Carpal tunnel syndrome, bilateral upper limbs (principal); F41.9 Anxiety disorder, unspecified; F32.A Depression, unspecified; I07.1 Rheumatic tricuspid insufficiency
CPT/HCPCS: 29848; J0690

== ENCOUNTER 2022-06-01 06:20 | Day surgery (SDC) | payer BC, SELFPAY ==
[2022-06-01 06:37] VITALS: BP 119/76; PULSE 79; RESP 18; TEMP 36.4; O2SAT 95
[2022-06-01] MEDS: Lactated Ringers 1,000 ML 80 ML IV (06:47)
--- NOTE | 2022-06-01 06:57 | W.ANESPRE ---
General Info Date of Service Date Performed: 06/01/22 Height: 5 ft Weight: 67.3 kg Body Mass Index (BMI): 29.0 Surgical Procedure: Operation Date: 06/01/22 07:40 Proposed Procedure Side Surgeon p Wrist ECTR Left Cj Lassiter MD Meds Allergies and Home Medications Allergies Allergy/AdvReac Type Severity Reaction Status Date / Time venlafaxine HCl Allergy Mild hives Verified 06/01/22 06:33 [From Effexor] metoclopramide Allergy Verified 06/01/22 06:33 topiramate [From Topamax] Allergy pt thinks Verified 06/01/22 06:33 itching codeine AdvReac Nausea Verified 06/01/22 06:33 Home Medication Medication Instructions Recorded cholecalciferol (vitamin D3) 25 1,000 unit PO DAILY 01/30/13 mcg (1,000 unit) capsule multivitamin (Daily Multi-Vitamin 1 ea PO DAILY 01/30/13 tablet) qroqvkpugz-wghlvzlsmf-ucbenucj-hyalur 2 ea PO DAILY 06/21/16 ac 375 mg-300 mg-175 mg-2 mg cap biotin 1 mg tablet 1 mg PO DAILY 08/15/19 triamcinolone acetonide 0.1 % 1 applic topical BID PRN rash #30 04/28/21 topical cream grams cetirizine 10 mg tablet (Zyrtec) 10 mg PO DAILY PRN 09/02/21 bupropion HCl 300 mg 24 hr tablet, 300 mg PO QAM #90 tabs 04/06/22 extended release estradiol 1 mg tablet 1 mg PO DAILY #90 tabs 05/03/22 hydrocodone 5 mg-acetaminophen 325 1 tab PO Q6H PRN severe pain #4 05/18/22 mg tablet tabs citalopram 20 mg tablet 10 mg PO DAILY #90 tabs 05/23/22 Current Visit Medications: Current Medications Generic Name Dose Route Start Last Admin Trade Name Freq PRN Reason Stop Dose Admin Acetaminophen 650 mg 06/01/22 06:32 Acetaminophen 325 Mg Tab PO Q4H PRN PRN Ringer's Solution 1,000 mls @ 80 mls/hr 06/01/22 06:00 06/01/22 06:47 IV 06/30/22 23:59 80 mls/hr INFUSION DIVYA Administration Cefazolin Sodium/Dextrose 2 gm in 50 mls @ 100 mls/hr 06/01/22 06:00 Ancef Duplex IVPB 06/30/22 23:59 PREOP DIVYA Ondansetron HCl 4 mg/ Sodium 52 mls @ 200 mls/hr 06/01/22 06:32 Chloride IVPB Q6H PRN PRN IV Miscellaneous Supplies 1 each 06/01/22 06:00 Iv Access IV 06/30/22 23:59 DIRECTED DIVYA Oxycodone HCl 5 mg 06/01/22 06:32 Oxycodone 5 Mg Tab PO Q3H PRN PRN Pain Sodium Chloride 0 ml 06/01/22 06:00 Normal Saline Flush 10 Ml Syr IV 06/30/22 23:59 PRN PRN Sodium Chloride 0 ml 06/01/22 06:00 Normal Saline 10 Ml Vial IJ 06/30/22 23:59 DIRECTED PRN Sterile Water 0 ml 06/01/22 06:00 Water,Injection,Sterile 10 Ml Vial IJ 06/30/22 23:59 DIRECTED PRN PFSH Active Problems Active Problems: Problem Status Onset Code Anxiety 10/26/17 F41.9 Depressive disorder F32.9 Osteopenia 10/26/08 M85.80 Stress incontinence N39.3 Urticaria L50.9 Irritable colon 01/12/09 K58.9 Annual physical exam Z00.00 Lateral epicondylitis M77.10 Cataract H26.9 Abnormal EKG R94.31 Tricuspid regurgitation I07.1 Piriformis syndrome of right side G57.01 Median nerve compression G56.00 Bilateral carpal tunnel syndrome G56.03 Medical History Medical History Abnormal mammography Annual physical exam (05/25/15) Anxiety Brief depressive adjustment reaction 10/26/08 of Mother Brief depressive adjustment reaction (10/26/08) Depression Hives (~02/11/19) Irritable colon 01/12/09 Mammogram abnormal left breast 2006 Menopausal symptom Menopausal symptom Osteopenia Postoperative nausea Urinary incontinence (05/25/15) Urticaria chronic tanning foster Medical History Comments:: hx postop nausea Surgical History Surgical History section X2 Colonoscopy - IV Sedation (06/22/12) DR. AMERICA BILL; NORMAL Colonoscopy - MAC (03/13/17) H/O section x2 History of bilateral ligation of fallopian tubes History of bilateral tubal ligation History of carpal tunnel surgery of right wrist (05/18/22) History of section History of suburethral sling procedure Midurethral sling; MD Encinas, 12/06/2018 Hx of bilateral cataract extraction Hysterectomy, Laproscopic (~2000) fibroids; ovaries removed Ligation of fallopian tube S/P laparoscopic hysterectomy 11/27/00 fibroids; both ovaries removed Status post laparoscopic hysterectomy Tobacco Smoking/Tobacco Use Status: Never Passive smoking exposure: Yes Second hand exposure: Yes Alcohol Alcohol Intake: never Substance Use Substance use: Never Vital Signs and Lab Results Vital Signs Most Recent Vital Signs in EMR: Most Recent Vital Signs Temp Pulse Resp BP Pulse Ox 36.4 C L 79 18 119/76 95 06/01/22 06:37 06/01/22 06:37 06/01/22 06:37 06/01/22 06:37 06/01/22 06:37 Lab Results Blood Type / Crossmatch: No Data to Display Complete Blood Count: No Data to Display Complete Metabolic Panel: No Data to Display Liver Function Panel: No Data to Display Coagulation Panel: No Data to Display Cardiac Panel: No Data to Display Arterial Blood Gas: No Data to Display Venous Blood Gas: No Data to Display Pancreas Panel: No Data to Display Thyroid Panel: No Data to Display Infectious Disease: No Data to Display Blood Cultures: No Data to Display Toxicology Panel: No Data to Display Imaging and Studies Imaging and Studies Study information below may be from another EMR and interpreted by another provider. Please see original notes in EMR for more complete details. EKG Summary: Conclusion Sinus rhythm...normal P axis, V-rate 60- 99 Inferior infarct, old...Q >35mS, II III aVF Echocardiogram Summary: Conclusion Left Ventricle : The left ventricle is normal size. The left ventricular systolic function is normal. The left ventricular ejection fraction is within the normal range. There is normal left ventricular wall thickness. There is normal LV segmental wall motion. The left ventricular diastolic function is normal. LVEF is 55-60%. Right Ventricle : The right ventricle is normal size. The right ventricular systolic function is normal. The RVSP is 21.0 mmHg. Atria : The left atrium size is normal. Prominent Eustachian valve is noted in the right atrium. Tricuspid Valve : The tricuspid valve is normal in structure. There is no tricuspid valve stenosis. Mild to moderate tricuspid regurgitation. Great Vessels : The aortic root is normal in size. The ascending aorta is mildly dilated (3.6cm). Aortic arch is normal in caliber. IVC is normal in size and collapses >50% with inspiration. Please see remainder of study for further details. Anesthesia Assessment and Plan Anesthesia History Personal History: PONV Family History: No Family History of Anesthesia Complications Exercise Tolerance Exercise Tolerance: Metabolic Equivalents>4 Pertinent Negatives Pertinent Negatives: No Symptoms of GERD, No Major Cardiovascular Symptoms or Complaints, No Major Pulmonary Symptoms or Complaints and No History of CVA/TIA Cardiac & Pulmonary Exam Cardiac Exam: Normal S1/S2 Heart Sounds Pulmonary Exam: Clear Bilateral Breath Sounds Implantable Cardiac Device Does patient have a Pacemaker or an ICD?: No Airway Exam Known Difficult Airway: No Mallampati Class: 2 Mouth Opening: Normal (> 3cm) Thyromental Distance: Greater than 3 cm Neck Range of Motion: Full ROM Neck Circumference: Normal Teeth Condition: Normal Dentition ASA Classification ASA Score: ASA 2 Emergency Case?: No NPO Status NPO Status: NPO Clears >2 hours, Solids >8 hours Anesthesia Plan Resuscitation Status: Full Code Anesthesia Technique: General Anesthesia Airway Planned: Natural Airway Monitors Used: Standard Monitors
[2022-06-01 07:00] VITALS: BMI 29.0
--- NOTE | 2022-06-01 07:12 | PDOC.DSDIS_ITS ---
Discharge Plan Disposition Patient Disposition: HOME Condition: Good Discharge Details Reason For Visit: right ECTR Attending Provider: Cj Lassiter Primary Care Provider: Aranza Evans Home Meds and New Rx's Prescriptions: Continued biotin 1 mg tablet 1 mg PO DAILY cetirizine [Zyrtec] 10 mg tablet 10 mg PO DAILY PRN triamcinolone acetonide 0.1 % cream 1 applic topical BID PRN (Reason: rash) Qty: 30 0RF Rx Instructions: apply to affected area 2x daily as needed multivitamin [Daily Multi-Vitamin] 1 EACH tablet 1 ea PO DAILY cholecalciferol (vitamin D3) 1,000 UNIT capsule 1,000 unit PO DAILY glucosam-chond yz-itzcmw-uz ac 1 EACH capsule 2 ea PO DAILY Rx Instructions: 750mg/600mg bupropion HCl 300 mg tablet extended release 24 hr 300 mg PO QAM Qty: 90 4RF estradiol 1 mg tablet 1 mg PO DAILY Qty: 90 3RF citalopram 20 mg tablet 10 mg PO DAILY Qty: 90 4RF hydrocodone-acetaminophen 5-325 mg tablet 1 tab PO Q6H PRN (Reason: severe pain) Qty: 4 0RF Rx Instructions: Take one tablet up to every 6 hours as needed for severe postoperative pain Discharge Instructions Stand Alone Forms: Sravani Larson Tunnel Release Referrals: Cj Lassiter MD [ [facility] STAFF PHYSICIAN] - Activity:: Activity as Tolerated Remove Dressings/Wound Care:: 72 hours Shower/Bathe:: 72 hours Diet:: As Tolerated Discharge Orders Discharge Orders: Discharge Order (Routine); Ordered 06/01/22 Ordered By: Erin Jacobson DS: Diagnosis Discharge Diagnosis (1) Bilateral carpal tunnel syndrome: Status: Acute
[2022-06-01] MEDS: ceFAZolin 2 GM/50 ML BAG IVPB (07:30)
[2022-06-01] MEDS: Lidocaine 1% Multi-Dose W/EPI 1/100,000 50 ML VIAL (07:37)
[2022-06-01 07:50] VITALS: BP 90/61; PULSE 76; RESP 16; TEMP 36; O2SAT 94
[2022-06-01 08:15] VITALS: BP 107/64; PULSE 66; RESP 16; TEMP 36.3; O2SAT 95
--- NOTE | 2022-06-01 08:48 | W.ANESPOSTOP ---
Postoperative Evaluation Date, Time and Location Date Performed: 06/01/22 Time Performed: 08:15 Patient Location: Day Surgery Unit Vital Signs Most Recent Imported Vital Signs: Most Recent Vital Signs Temp Pulse Resp BP Pulse Ox 36.3 C L 66 16 107/64 95 06/01/22 08:15 06/01/22 08:15 06/01/22 08:15 06/01/22 08:15 06/01/22 08:15 Pain Score Most Recent Pain Score: Most Recent Pain Score Pain Level 0 06/01/22 08:15 Assessment Mental Status: Awake (Alert & Oriented to Patient Baseline) Airway and Respiratory Function: Patent airway with normal (patient baseline) respiratory exam Cardiovascular Function: Hemodynamically Stable Hydration Status: Adequately Hydrated Nausea & Vomiting: No Nausea or Vomiting Pain: Pt. Denies Any Pain Peripheral Nerve Block: Patient did not receive a nerve block
--- NOTE | 2022-06-01 09:25 | ROE_ITS ---
Date of service: 06/01/22 Time of Service: 07:45 Operative Note Operative Note DATE OF PROCEDURE: 06/01/22 PRE-OP DIAGNOSIS: Left Carpal Tunnel Syndrome POST-OP DIAGNOSIS: same PROCEDURE: Left Endoscopic Carpal Tunnel Release SURGEON: Cj Lassiter ANESTHESIA TYPE: General:No Airway Refer to Anesthesia Record ESTIMATED BLOOD LOSS: 0 PATHOLOGY: none sent TOURNIQUET TIME: 4 COMPLICATIONS: None Patient was transported to: same day Patient's condition: stable Indications: I have seen Ilda in clinic for symptoms of carpal tunnel syndrome. The numbness, tingling, and pain limited function. Clinical exam findings [with nerve conduction tests ]confirmed the diagnosis of carpal tunnel syndrome. Nonoperative measures such as bracing, time, activity modifications had been tried but disability and pain persisted. She had a successful carpal tunnel release on the right side. I discussed carpal tunnel release with the patient. I reviewed the risks of the procedure to include, but not limited to, bleeding, infection, pain, stiffness, incomplete release, damage to nerves or vessels, persistent numbness, recurrence. Despite these risks, the patient elected to proceed. Findings: There was tightened carpal tunnel. This was dilated and released successfully with the endoscopic with increased space within the tunnel. The antebrachial fascia was released proximally freeing the median nerve at the wrist. Procedure Description: Ilda was greeted in the preoperative holding area where the correct side was identified and marked. The consent was reviewed with the patient and signed. The history and physical was updated. All questions were answered. She was taken back to the operating room. The patient was placed into the supine position on the operating room table with the left arm on an arm board. All bony prominences were well padded. Prophylactic antibiotics in the form of Cefazolin were administered. The left arm was then prepped with Chloraprep and draped in a standard fashion with stockinette and extremity drape. A timeout to confirm correct identity, side and site, procedure, allergies, anesthesia, and medical concerns was performed. The surgical site was marked in the volar wrist creases in line with the radial border of the fourth ray. This area was anesthetized with approximately 6cc of 1% Lidocaine. The limb was then exsanguinated with an Esmarch and an Esmarch tourniquet applied. The skin was incised with a 15 blade, approximately 1cm. The skin only was cut and the deeper tissue was dissected bluntly with a tenotomy scissor, avoiding passing nerve and venous structures. The fascia was penetrated and opened bluntly. A two-prong skin hook was placed under this proximal fascial edge. A series of hamate finders were used to identify and dilate the carpal tunnel. Synovial elevator was used to free synovial attachments to the underside of the transverse carpal ligament. My thumb was kept in the palm to junie the distal extent of the carpal tunnel and correctly po sition the hand. The Microaire endoscope was inserted without difficulty and without resistance. Excellent visualization showed horizontally running fibers of the transverse carpal ligament (TCL). The distal extent of the TCL was visualized and the end of the scope palpated with the thumb. The blade was elevated and withdrawn from distal to proximal. The TCL was split into two flaps. The endoscope was reinserted to confirm complete release and any remnant ligament was incised. The scope was withdrawn and the proximal aspect of the carpal tunnel was grossly inspected and appeared release with the median nerve visible. The antebrachial fascia at the level of the wrist was then freed from the overlying skin and then the underlying median nerve with blunt dissection. This was transected longitudinally for about 3cm proximal to the wrist incision. The wound was then irrigated with easy flow of irrigant distally and proximally. The incision was closed with a single 4-0 Nylon suture. The wound was dressed with Xeroform, Gauze, Kerlix and Hood. The tourniquet was deflated with the initial dressing and held with some pressure. Blood flow returned easily to all digits with capillary refill less than 2 seconds. The patient tolerated the procedure well and was returned to the Same Day Surgery area in a stable condition suffering no known complication.
== END 2022-06-01 08:50 | disposition home or self-care (01) ==
PROVIDERS: PCP Family Medicine; Visit Provider Student in an Organized Health Care Education/Training Program
PROC: 01N54ZZ Release Median Nerve, Percutaneous Endoscopic Approach (ICD-10-PCS; CPT 29848; principal; 2022-06-01 07:30)
DX: G56.02 Carpal tunnel syndrome, left upper limb (principal); F32.A Depression, unspecified; N39.3 Stress incontinence (female) (male); K58.9 Irritable bowel syndrome, unspecified
CPT/HCPCS: 29848; J0690

== ENCOUNTER 2022-10-07 00:46 | Outpatient (CLI) | payer BC, SELFPAY ==
--- NOTE | 2022-10-07 08:48 | DI.MAMMO_ITS ---
Exam(s) MAMMO SCREENING EXAM: MAMMO SCREENING CLINICAL HISTORY: screening,z12.39. TECHNIQUE: Bilateral full field digital CC and MLO mammographic images were obtained with 3D tomosyn thesis and utilizing computer aided detection (CAD). COMPARISON: Prior mammograms were reviewed. FINDINGS: There has been no significant change in the appearance and distribution of the fibroglandular tissue. There are no new significant findings in left breast. In the right breast on the MLO view there is a subtle suggestion of a nodular density on measuring 9 x 8 millimeters and located approximately 6 cm in from the nipple on the MLO view. Spot compression and ultrasound recommended. There are no malignant-appearing microcalcification groups in this region or elsewhere in either [address]. There is no significant architectural distortion nor skin thickening-retraction. IMPRESSION: 1. No radiographic evidence of malignancy in left breast. 2. Possible right breast nodule as seen on MLO view. Recommend spot compression 3D MLO view and righ t breast ultrasound. BI-RADS Category 0 - Assessment Incomplete: Need additional imaging evaluation Breast Density - Category C - Heterogeneously dense Breast density Category C or D implies that the patient has dense breast tissue. Dense breast tissue can make it harder to find cancer on a mammogram. Dense breast tissue is also associated with an incr eased risk of breast cancer. This information about the result of the mammogram report was provided to the patient to raise their awareness. Use this report when you speak with the patient about their risks for breast cancer, which includes their family history. At that time, you may recommend additional screening tests (Ultrasoun d or MRI) as these tests may add significant information. A negative radiographic report should not delay biopsy if a dominant or clinically suspicious mass is present. Up to ten percent of cancers are not identified on mammography. A negative report may reinforce clinical impression. Adenosis and dense breasts may obscure an underlying neoplasm. False positive reports average 6 to 10%. Patient will receive a letter notifying them of these results.
== END 2022-10-07 01:06 ==
LOC: DI 00:46
PROVIDERS: PCP Family Medicine; Visit Provider Family Medicine
DX: Z12.31 Encounter for screening mammogram for malignant neoplasm of breast (principal); R92.8 Other abnormal and inconclusive findings on diagnostic imaging of breast
CPT/HCPCS: 77063; 77067

== ENCOUNTER 2022-10-13 02:08 | Outpatient (CLI) | payer BC, SELFPAY ==
--- NOTE | 2022-10-13 | DI.US_ITS ---
Exam(s) MG MAMMO SCREEN CALL BACK UNI US BREAST RT LIMITED EXAM: MG MAMMO SCREEN CALL BACK UNI CLINICAL HISTORY: F/U MAMMO, NODULAR DENSITY, R92.8 TECHNIQUE: Mammograms were interpreted according to the usual protocol including computer analysis w ith CAD system, tomosynthesis and C-view imaging. COMPARISON: FINDINGS: Additional mammographic views of the right breast and right breast ultrasound are interpreted in conj unction. These examinations were obtained to evaluate questionable nodular appearing radiodensity se en on recent mammogram. Additional mammographic views no evidence of a mass and show little if any c hange in appearance comparison with multiple prior mammograms at this site. Breast ultrasound shows no evidence of a mass or cyst. IMPRESSION: No specific evidence of malignancy at this time. Follow-up mammogram suggested in 12 months. BI-RADS Category 2 - Benign Findings Breast Density - Category C - Heterogeneously dense
== END 2022-10-13 02:28 ==
LOC: DI 02:10
PROVIDERS: PCP Family Medicine; Visit Provider Family Medicine
DX: Z12.31 Encounter for screening mammogram for malignant neoplasm of breast (principal); R92.8 Other abnormal and inconclusive findings on diagnostic imaging of breast
CPT/HCPCS: 76642; 77063; 77067

== ENCOUNTER 2022-11-11 00:32 | Outpatient (CLI) | payer BC, SELFPAY ==
--- NOTE | 2022-11-11 07:30 | DI.DEXA_ITS ---
Exam(s) XR DEXA BONE DENSITY W/WO TOI EXAM: XR DEXA BONE DENSITY W/WO TOI CLINICAL HISTORY: osteoporosis, m81.0 TECHNIQUE: Routine DEXA evaluation of the lumbar spine, hip, or forearm. COMPARISON: Prior DEXA scan August 2018. FINDINGS: Performed on a HoloOneShield unit. Lateral image: No compression fracture evident. Lumbar Spine total T-score: -1.7.. Prior 2018 reading was -1.9. Hip total T-score:-2.2. Prior reading was identical Independent reading at the level of the femoral neck yields T-score of -2.4 Forearm total T-score: -0.2 IMPRESSION: Bone mineral density measures in the osteopenia range. Fracture risk is moderate. Note: Any spine fracture indicates 5x risk for subsequent spine fracture and 2x risk for subsequent h ip fracture. World Health Organization criteria for BMD interpretation classify patients: Normal...... T- Score at or above -1.0 Osteopenic... T- Score between -1.0 and -2.5 Osteoporosis... T-Score at or below -2.5
== END 2022-11-11 00:52 ==
LOC: DI 00:32
PROVIDERS: PCP Family Medicine; Visit Provider Family Medicine
DX: M81.0 Age-related osteoporosis without current pathological fracture (principal); M85.88 Other specified disorders of bone density and structure, other site
CPT/HCPCS: 77080

== ENCOUNTER 2023-06-30 09:49 | Day surgery (SDC) | payer BC, SELFPAY ==
--- NOTE | 2023-06-29 18:53 | W.COLOREPORT ---
Date of service: 06/30/23 Time of Service: 11:30 Colonoscopy Report Date of procedure: 06/30/23 Pre-op diagnosis general: CRC screening Post-op diagnosis procedure note: other (polyp) Surgeon: Shanna Kilpatrick Anesthesia Type: General:No Airway Estimated blood loss (mL): 1 Pathology: other Complications: None Disposition: same day Prep: Miralax/Dulcolax Retraction Time: 10 Procedure Description: After informed consent was obtained the patient was taken to the procedure room and placed in a left decubitous position. Monitors were applied and a time out was done. The patients name, date of , procedure, allergies to medications and metal in their body was reviewed. The patient was then sedated. Once sedated and comfortable a rectal exam was done. External exam was normal. Internal exam revealed a normal sphincter tone and no palpable masses. The scope was then introduced and retrofelexed. No internal hemorrhoids were identified. The scope was then advanced to the cecum w/ some difficulty. The colon is very torteous and redundant. The TI and appendiceal orifice were identified. The prep was BBPS 3 in all segments for a toatl of 9. The scope was then slowly retracted over 10 minutes back into the rectum. There are no AVM's or diverticula identified. She has a flat 5mm polyp at 20cm that is removed w/ a cold bx forcepts. The scope was removed and the patient was woken up and taken back to Same day surgery in stable condition. The patient tolerated the procedure well and there were no immediate complications. Follow up: The patient should follow up in 7-10 years, path pd, unless they develop changes in bowel habits or other new gastrointestinal complaints.
--- NOTE | 2023-06-29 18:56 | PDOC.DSDIS_ITS ---
Date of service: 06/30/23 Time of Service: 13:00 Discharge Plan Disposition Patient Disposition: Home Condition: Good Discharge Details Reason For Visit: colon can screening Attending Provider: Shanna Kilpatrick Primary Care Provider: Aranza Evans Home Meds and New Rx's Prescriptions: Continued biotin 1 mg tablet 1 mg PO DAILY cetirizine [Zyrtec] 10 mg tablet 10 mg PO DAILY PRN bupropion HCl 300 mg tablet extended release 24 hr 300 mg PO QAM Qty: 90 4RF estradiol 1 mg tablet 1 mg PO DAILY Qty: 90 3RF citalopram 10 mg tablet 10 mg PO DAILY Qty: 90 4RF triamcinolone acetonide 0.1 % cream 1 applic topical BID PRN (Reason: rash) Qty: 80 2RF Rx Instructions: apply to affected area 2x daily as needed multivitamin [Daily Multi-Vitamin] 1 EACH tablet 1 ea PO DAILY cholecalciferol (vitamin D3) 1,000 UNIT capsule 1,000 unit PO DAILY glucosam-chond iz-ywaovs-dp ac 1 EACH capsule 2 ea PO DAILY Rx Instructions: 750mg/600mg Discontinued bisacodyl [Dulcolax (bisacodyl)] 5 mg tablet,delayed release (DR/EC) 5 mg PO ONCE Qty: 4 0RF Rx Instructions: Take per colonoscopy instructions provided by ordering providers office polyethylene glycol 3350 17 gram/dose powder 17 g PO ONCE Qty: 238 0RF Rx Instructions: Take per colonoscopy instructions provided by ordering providers office Discharge Instructions Additional Instructions: DSU Colonoscopy Post- Op Instructions Instructions for Everyone who is given Anesthesia: For your safety, please do the following for the next twenty-four (24) hours: *Do Not operate a motor vehicle (car, truck, motorcycle, etc.) *Do Not drink alcoholic beverages or use any recreational drugs for the first 24 hours or while taking pain medications. The medications in your body may have a reaction that can be dangerous. *Do Not make any important decisions or sign any important papers. Findings: small polyp-my office will send a letter antirheumatics time detailing the results of the polyps and when to repeat colonoscopy, most likely in 10 years time. 1. No lifting over 20 pounds or strenuous activity for the first 24 hours after your procedure. After 24 hours there are no restrictions on your activity but you may feel fatigued for a few days. 2. After you arrive home you may have a light meal and return to your normal diet as you can tolerate it without feeling sick to your stomach. 3. You may have a bloated, gaseous feeling in your belly (abdomen) after a colonoscopy. Passing gas and belching will help. Walking or lying down on your left side with your knees flexed may relieve the discomfort. Call the office at [phone] (Office) or [phone] (Hospital) right away if you notice any of the following: a.Vomiting of blood or ?coffee ground stools?. b.Rectal bleeding 1Tbsp, blood clots or continuous bleeding. c.Severe belly (abdominal) pain. d.A hard distended belly (abdomen) and an inability to pass gas. 4. Please don?t expect to have a normal BM (bowel movement) for 2-3 days after your procedure. 5. If there are questions regarding the findings of your procedure, please contact your doctor 6. If you are unable to contact your doctor with a problem, contact the hospital at [phone]. 7. Continue all your regular medications unless directed otherwise. I understand the above instructions and have no questions. Signature of Patient or Adult Escort Name of Responsible Adult Escort Signature of Nurse Date/Time Stand Alone Forms: Laura Curran (DSU) Activity:: see above Diet:: see above Discharge Orders Discharge Orders: Discharge Order (Routine); Ordered 06/30/23 Ordered By: Shanna Kilpatrick DS: Diagnosis Discharge Diagnosis (1) Osteoporosis: Status: Chronic (2) Encounter for screening colonoscopy: Status: Acute Asessment and Plan: The patient is seen and examined after their colonoscopy.? The patient has been able to pass gas.? They are not having abdominal pain.? They have been able to tolerate liquids and a snack.? They do not have any nausea or vomiting.? They are not having any chest pain or shortness of breath.??? They are not having any rectal bleeding. Their vital signs have been stable-see nursing notes. We discussed findings during their colonoscopy, and any biopsies that were done/polyps that were removed. The patient will be sent a letter with any biopsy results, and when to repeat the colonoscopy.-see discharge instructions. Patient was given explicit instructions to follow-up regarding colonoscopy-refer to discharge instructions.? We reviewed resumption of medications. Patient verbalized understanding and discharged in stable and satisfactory condition- See nursing notes. (3) Screening for malignant neoplasm performed: Status: Acute (4) Stress incontinence: Status: Chronic (5) Irritable colon: Status: Acute (6) Tricuspid regurgitation: Status: Acute (7) Postoperative nausea:
--- NOTE | 2023-06-30 10:24 | W.ANESPRE ---
General Info Date of Service Date Performed: 06/30/23 Height: 5 ft Weight: 58.9 kg Body Mass Index (BMI): 25.3 Surgical Procedure: Operation Date: 06/30/23 10:35 Proposed Procedure Side Surgeon paresh Kilpatrick, DO Meds Allergies and Home Medications Allergies Allergy/AdvReac Type Severity Reaction Status Date / Time venlafaxine HCl Allergy Mild hives Verified 06/30/23 10:06 [From Effexor] metoclopramide Allergy Verified 06/30/23 10:06 topiramate [From Topamax] Allergy pt thinks Verified 06/30/23 10:06 itching codeine AdvReac Nausea Verified 06/30/23 10:06 Home Medication Medication Instructions Recorded cholecalciferol (vitamin D3) 25 1,000 unit PO DAILY 01/30/13 mcg (1,000 unit) capsule multivitamin (Daily Multi-Vitamin 1 ea PO DAILY 01/30/13 tablet) uewttecorc-ppogrttezd-inzoeade-hyalur 2 ea PO DAILY 06/21/16 ac 375 mg-300 mg-175 mg-2 mg cap biotin 1 mg tablet 1 mg PO DAILY 08/15/19 cetirizine 10 mg tablet (Zyrtec) 10 mg PO DAILY PRN 09/02/21 bupropion HCl 300 mg 24 hr tablet, 300 mg PO QAM #90 tabs 04/04/23 extended release citalopram 10 mg tablet 10 mg PO DAILY #90 tabs 04/04/23 estradiol 1 mg tablet 1 mg PO DAILY #90 tabs 04/04/23 triamcinolone acetonide 0.1 % 1 applic topical BID PRN rash #80 04/04/23 topical cream grams Current Visit Medications: Current Medications Generic Name Dose Route Start Last Admin Trade Name Freq PRN Reason Stop Dose Admin Hyoscyamine Sulfate 0.125 mg 06/30/23 01:06 Hyoscyamine 0.125 Mg Sl/Oral/Chew SL 07/30/23 01:05 DIRECTED PRN Ringer's Solution 1,000 mls @ 80 mls/hr 06/30/23 06:00 IV 06/30/23 23:59 INFUSION DIVYA IV Miscellaneous Supplies 1 each 06/30/23 06:00 Iv Access IV 06/30/23 23:59 DIRECTED DIVYA Ondansetron HCl 4 mg 06/30/23 01:06 Ondansetron 4 Mg/2 Ml Vial IVP 07/30/23 01:05 Q4H PRN PRN Nausea / Vomiting Sodium Chloride 0 ml 06/30/23 06:00 Normal Saline Flush 10 Ml Syr IV 06/30/23 23:59 PRN PRN Sodium Chloride 0 ml 06/30/23 06:00 Normal Saline 10 Ml Vial IJ 06/30/23 23:59 DIRECTED PRN Sterile Water 0 ml 06/30/23 06:00 Water,Injection,Sterile 10 Ml Vial IJ 06/30/23 23:59 DIRECTED PRN PFSH Active Problems Active Problems: Problem Status Onset Code Screening for malignant neoplasm performed Z12.9 Osteoporosis M81.0 Encounter for screening colonoscopy Z12.11 Anxiety 10/26/17 F41.9 Depressive disorder F32.9 Osteopenia 10/26/08 M85.80 Stress incontinence N39.3 Urticaria L50.9 Irritable colon 01/12/09 K58.9 Annual physical exam Z00.00 Lateral epicondylitis M77.10 Cataract H26.9 Abnormal EKG R94.31 Tricuspid regurgitation I07.1 Piriformis syndrome of right side G57.01 Median nerve compression G56.00 Medical History Medical History Abnormal mammography Annual physical exam (05/25/15) Anxiety Brief depressive adjustment reaction 10/26/08 of Mother Brief depressive adjustment reaction (10/26/08) Depression Hives (~02/11/19) Irritable colon 01/12/09 Mammogram abnormal left breast 2007 Menopausal symptom Menopausal symptom Osteopenia Postoperative nausea Urinary incontinence (05/25/15) Urticaria chronic tanning foster Medical History Comments:: hx postop nausea pt states she woke up during last colo and during her cataracts surgery Surgical History Surgical History section X2 Colonoscopy - IV Sedation (06/22/12) DR. AMERICA BLIL; NORMAL Colonoscopy - MAC (03/13/17) H/O section x2 History of bilateral ligation of fallopian tubes History of bilateral tubal ligation History of carpal tunnel surgery of left wrist (06/01/22) ECTR History of carpal tunnel surgery of right wrist (05/18/22) ECTR History of section History of suburethral sling procedure Midurethral sling; MD Encinas, 12/06/2018 Hx of bilateral cataract extraction Hysterectomy, Laproscopic (~2000) fibroids; ovaries removed Ligation of fallopian tube S/P laparoscopic hysterectomy 11/27/00 fibroids; both ovaries removed Status post laparoscopic hysterectomy Tobacco Smoking/Tobacco Use Status: Never Passive smoking exposure: Yes Second hand exposure: Yes Alcohol Alcohol Intake: never Substance Use Substance use: Never Vital Signs and Lab Results Lab Results Blood Type / Crossmatch: No Data to Display Complete Blood Count: No Data to Display Complete Metabolic Panel: No Data to Display Liver Function Panel: No Data to Display Coagulation Panel: No Data to Display Cardiac Panel: No Data to Display Arterial Blood Gas: No Data to Display Venous Blood Gas: No Data to Display Pancreas Panel: No Data to Display Thyroid Panel: No Data to Display Infectious Disease: No Data to Display Blood Cultures: No Data to Display Toxicology Panel: No Data to Display Imaging and Studies Imaging and Studies Study information below may be from another EMR and interpreted by another provider. Please see original notes in EMR for more complete details. EKG Summary: Conclusion Sinus rhythm...normal P axis, V-rate 60- 99 Inferior infarct, old...Q >35mS, II III aVF Echocardiogram Summary: Conclusion Left Ventricle : The left ventricle is normal size. The left ventricular systolic function is normal. The left ventricular ejection fraction is within the normal range. There is normal left ventricular wall thickness. There is normal LV segmental wall motion. The left ventricular diastolic function is normal. LVEF is 55-60%. Right Ventricle : The right ventricle is normal size. The right ventricular systolic function is normal. The RVSP is 21.0 mmHg. Atria : The left atrium size is normal. Prominent Eustachian valve is noted in the right atrium. Tricuspid Valve : The tricuspid valve is normal in structure. There is no tricuspid valve stenosis. Mild to moderate tricuspid regurgitation. Great Vessels : The aortic root is normal in size. The ascending aorta is mildly dilated (3.6cm). Aortic arch is normal in caliber. IVC is normal in size and collapses >50% with inspiration. Please see remainder of study for further details. Anesthesia Assessment and Plan Anesthesia History Personal History: PONV and Awareness Under Anesthesia Family History: No Family History of Anesthesia Complications Exercise Tolerance Exercise Tolerance: Metabolic Equivalents>4 Pertinent Negatives Pertinent Negatives: No Symptoms of GERD and No Major Pulmonary Symptoms or Complaints Cardiac & Pulmonary Exam Cardiac Exam: Normal S1/S2 Heart Sounds Pulmonary Exam: Clear Bilateral Breath Sounds Implantable Cardiac Device Does patient have a Pacemaker or an ICD?: No Airway Exam Known Difficult Airway: No Mallampati Class: 2 Mouth Opening: Normal (> 3cm) Thyromental Distance: Greater than 3 cm Neck Range of Motion: Full ROM Neck Circumference: Normal Teeth Condition: Normal Dentition ASA Classification ASA Score: ASA 2 Emergency Case?: No NPO Status NPO Status: NPO Clears >2 hours, Solids >8 hours Anesthesia Plan Resuscitation Status: Full Code Anesthesia Technique: General Anesthesia Airway Planned: Natural Airway Monitors Used: Standard Monitors
[2023-06-30] MEDS: Lactated Ringers 1,000 ML 80 ML IV (10:25)
[2023-06-30 10:27] VITALS: BMI 25.3
--- NOTE | 2023-06-30 11:37 | BOWEL_PTH ---
PATIENT: Nenita Wood LOC: [facility] U#:[id number] AGE/SX: 62/F ROOM: RE06/30/[address]: Shanna Kilpatrick : 1960 BED: DIS: 06/30/2023 SPEC #: [id number] RECD: 06/30/23 12:23 STATUS: MELODY REMagdaleno #: [id number] TERRELL: 06/30/23 11:[address]: Shanna Kilpatrick DEPT: Surgical Specimen RECD BY: Bernadette Urena ENTERED: 06/30/23 12:28 SP TYPE: Bowel OTHR DR: Aranza Evans MD, DC Tissues: 1 - BIOPSY BOWEL Procedures: GROSS AND MICRO LEVEL 4 Comments: [id number]
[2023-06-30 11:59] VITALS: BP 122/77; PULSE 73; RESP 16; TEMP 36.5; O2SAT 96
[2023-06-30 12:40] VITALS: BP 125/87; PULSE 68; RESP 16; TEMP 36.5; O2SAT 98
--- NOTE | 2023-06-30 13:18 | W.ANESPOSTOP ---
Postoperative Evaluation Date, Time and Location Date Performed: 06/30/23 Time Performed: 12:40 Patient Location: Day [facility] Unit Vital Signs Most Recent Imported Vital Signs: Most Recent Vital Signs Temp Pulse Resp BP Pulse Ox 36.5 C 68 16 125/87 98 06/30/23 12:40 06/30/23 12:40 06/30/23 12:40 06/30/23 12:40 06/30/23 12:40 Pain Score Most Recent Pain Score: Most Recent Pain Score Pain Level 0 06/30/23 12:40 Assessment Mental Status: Awake (Alert & Oriented to Patient Baseline) Airway and Respiratory Function: Patent airway with normal (patient baseline) respiratory exam Cardiovascular Function: Hemodynamically Stable Hydration Status: Adequately Hydrated Nausea & Vomiting: No Nausea or Vomiting Pain: Pt. Denies Any Pain Peripheral Nerve Block: Patient did not receive a nerve block
== END 2023-06-30 13:05 | disposition home or self-care (01) ==
PROVIDERS: PCP Family Medicine; Visit Provider Surgery
PROC: 0DJD8ZZ Inspection of Lower Intestinal Tract, Via Natural or Artificial Opening Endoscopic (ICD-10-PCS; CPT 45378; principal; 2023-06-30 10:30)
DX: Z12.11 Encounter for screening for malignant neoplasm of colon; D12.5 Benign neoplasm of sigmoid colon
CPT/HCPCS: 45380; 88305

== ENCOUNTER 2023-10-10 10:12 | Outpatient (CLI) | payer BC, SELFPAY ==
[2023-10-10 13:06] LABS: ALT 19 U/L (14-59); AST 16 U/L (15-37); Albumin 3.9 g/dL (3.4-5.0); Alkaline Phosphatase 74 U/L (46-116); Anion Gap 7.5 mmol/L (3-11); BUN 11 mg/dL (7-18); Bilirubin, Total 0.2 mg/dL (0.2-1.0); CO2 27.5 mmol/L (21.0-32.0); CREATININE 0.7 mg/dL (0.55-1.02); Calcium 9.3 mg/dL (8.5-10.1); Calculated LDL 96 mg/dL (<100); Chloride 105 mmol/L (98-107); Cholesterol 190 mg/dL (<200); Estimated GFR 97.72 (mL/min/1.73m2); Glucose 97 mg/dL (74-106); HDL Cholesterol 73 mg/dL (40-60); Potassium 4.3 mmol/L (3.5-5.1); Sodium 140 mmol/L (136-145); TSH (W/Ref FT4) 1.61 uIU/mL (0.36-3.74); Total Protein 7.3 g/dL (6.4-8.2); Triglyceride 106 mg/dL (<150)
== END 2023-10-10 10:13 | disposition home or self-care (01) ==
LOC: LOS 10:12
PROVIDERS: PCP Family Medicine; Visit Provider Family Medicine
DX: M81.0 Age-related osteoporosis without current pathological fracture (principal); I10 Essential (primary) hypertension; Z00.00 Encounter for general adult medical examination without abnormal findings; E03.9 Hypothyroidism, unspecified
CPT/HCPCS: 36415; 80053; 80061; 82306; 84443

== ENCOUNTER → 2023-11-01 01:25 | Outpatient (CLI) | payer BC, SELFPAY ==
--- NOTE | 2023-11-01 07:45 | DI.MAMMO_ITS ---
Exam(s) MAMMO SCREENING EXAM: MAMMO SCREENING CLINICAL HISTORY: screening,z12.39. TECHNIQUE: Bilateral full field digital CC and MLO mammographic images were obtained with 3D tomosyn thesis and utilizing computer aided detection (CAD). COMPARISON: Prior mammograms were reviewed. FINDINGS: There are no new spiculated masses nor malignant appearing microcalcification groups. There is no significant architectural distortion nor skin thickening-retraction. IMPRESSION: No radiographic evidence of malignancy. BI-RADS Category 1 - Negative Breast Density - Category C - Heterogeneously dense Breast density Category C or D implies that the patient has dense breast tissue. Dense breast tissue can make it harder to find cancer on a mammogram. Dense breast tissue is also associated with an incr eased risk of breast cancer. This information about the result of the mammogram report was provided to the patient to raise their awareness. Use this report when you speak with the patient about their risks for breast cancer, which includes their family history. At that time, you may recommend additional screening tests (Ultrasoun d or MRI) as these tests may add significant information. A negative radiographic report should not delay biopsy if a dominant or clinically suspicious mass is present. Up to ten percent of cancers are not identified on mammography. A negative report may reinforce clinical impression. Adenosis and dense breasts may obscure an underlying neoplasm. False positive reports average 6 to 10%. Patient will receive a letter notifying them of these results.
== END ==
PROVIDERS: PCP Family Medicine; Visit Provider Family Medicine
DX: Z12.31 Encounter for screening mammogram for malignant neoplasm of breast (principal)
CPT/HCPCS: 77063; 77067

== ENCOUNTER 2024-11-21 00:06 | Outpatient (CLI) | payer BC, SELFPAY ==
--- NOTE | 2024-11-21 10:06 | DI.MAMMO_ITS ---
Exam(s) MAMMO SCREENING EXAM: MAMMO SCREENING CLINICAL HISTORY: screening, Z12.39 TECHNIQUE: Mammograms were interpreted according to the usual protocol including computer analysis w [employer] CAD system, tomosynthesis and C-view imaging. COMPARISON: 2014 through 2022 FINDINGS: The breasts are composed of heterogeneously dense fibroglandular densities, Breast Density category C . No suspicious masses or suspicious microcalcifications are seen. No skin thickening or abnormal axillary lymph nodes are seen. There has been no significant change from prior exams. IMPRESSION: BI-RADS Category 1, Negative mammogram. Yearly screening mammography is recommended. Breast Density Category C, heterogeneously Dense. The mammogram demonstrates the patient's breast tissue is dense. Dense breast tissue is very common a nd is not abnormal but dense breast tissue can make it harder to find cancer on a mammogram. Also, de nse breast tissue may increase breast cancer risk. This information about the result of the mammogram report was provided to the patient to raise their awareness. Use this report when you speak with the patient about their risks for breast cancer, which includes their family history. At that time, you may recommend additional screening tests (Ultrasound or MRI) as they might be useful based on their r isk. A negative radiographic report should not delay biopsy if a dominant or clinically suspicious mass is present. Up to ten percent of cancers are not identified on mammography. A negative report may reinforce clinical impression. Adenosis and dense breasts may obscure an underlying neoplasm. False positive reports average 6 to 10%.
== END 2024-11-21 00:26 ==
LOC: DI 00:06
PROVIDERS: PCP Family Medicine; Visit Provider Family Medicine
DX: Z12.31 Encounter for screening mammogram for malignant neoplasm of breast (principal); R92.333 Mammographic heterogeneous density, bilateral breasts
CPT/HCPCS: 77063; 77067

== ENCOUNTER 2025-11-11 01:37 | Outpatient (CLI) | payer BC, SELFPAY ==
[2025-11-11 10:28] LABS: TSH (W/Ref FT4) 1.94 uIU/mL (0.55-4.78)
[2025-11-11 10:35] LABS: ALT 21 U/L (10-49); AST 27 U/L (<34); Albumin 4.4 g/dL (3.2-5.0); Alkaline Phosphatase 84 U/L (46-116); Anion Gap 8.9 mmol/L (3-11); BUN 10 mg/dL (9-23); Bilirubin, Total 0.3 mg/dL (0.2-1.2); CO2 27.1 mmol/L (20.0-31.0); Calcium 8.9 mg/dL (8.3-10.6); Chloride 104 mmol/L (98-107); Glucose 72 mg/dL (74-106); Potassium 4.0 mmol/L (3.5-5.1); Sodium 140 mmol/L (136-145); Total Protein 7.1 g/dL (5.7-8.2)
== END 2025-11-11 01:38 | disposition home or self-care (01) ==
PROVIDERS: PCP Family Medicine; Visit Provider Family Medicine
DX: E03.9 Hypothyroidism, unspecified (principal); Z00.00 Encounter for general adult medical examination without abnormal findings; I10 Essential (primary) hypertension
CPT/HCPCS: 36415; 80053; 84443